=== PATIENT | female | born 1940 | race Caucasian/White ===

== ENCOUNTER 2016-10-27 10:49 | Emergency (ER) | payer MEDICARE ==
[~2016-10-27] VITALS: Ht 165.1 cm; Wt 104.0 kg
[~2016-10-27 10:49] MED LIST: DICL1GEL7 TOPICAL
[2016-10-27 10:52] VITALS: BP 217/99; PULSE 99; RESP 18; TEMP 99.1
[2016-10-27 11:11] VITALS: O2SAT 96
[2016-10-27] MEDS ORDERED: ASPIRIN 81 MG CHEW TAB PO ONE (11:15)
[2016-10-27] MEDS ORDERED: SODIUM CHLORIDE 0.9% FLUSH 10 ML FLUSH IVF PRN (11:15)
--- NOTE | 2016-10-27 11:15 | PD ---
HPI . Hypertension Chief Complaint: Hypertension Time Seen by Provider: 11:00 Travel History International Travel<30 days: No Contact w/Intl Traveler<30days: No Traveled to known affect area: No History of Present Illness HPI This patient presents with a chief complaint of hypertension. She states that she is not on any medications for hypertension. She states that she occasionally has a headache and feels hot all over. There does not seem to be anything acute today that brought her to the emergency room about this. He denies chest pain. No shortness of breath. No unusual swelling. No change in mental status. PFSH Past Medical History Cancer: No Cardiovascular Problems: No Endocrine: Yes Genitourinary: No Immune Disorder: No Musculoskeletal: Yes Neurologic: No Psychiatric: No Reproductive: No Respiratory: Yes Sleep Apnea: Yes (JUNE 2010) Thyroid Disease: Yes ?: Not Past Surgical History Abdominal Surgery: Yes (GALLBLADDER REMOVED) Cardiac Surgery: No Ear Surgery: No Endocrine Surgery: No Eye Surgery: No Genitourinary Surgery: Yes Gynecologic Surgery: Yes (HYSTERECTOMY) Oral Surgery: No Thoracic Surgery: No Social History Tobacco Use: No Substance Use: No Allergies-Medications (Allergen,Severity, Reaction): Coded Allergies: Sulfa (Sulfonamide Antibiotics) (Unverified Allergy, Severe, 10/27/16) cefuroxime (Unverified Allergy, Severe, 10/27/16) penicillin G (Unverified Allergy, Severe, 10/27/16) Reported Meds & Prescriptions Reported Meds & Active Scripts Active Review of Systems Except as stated in HPI: all other systems reviewed are Neg Eyes: No: Blurred Vision HENT: Positive: Headaches Cardiovascular: No: Chest Pain or Discomfort Respiratory: No: Shortness of Breath Neurologic: No: Paresthesia Physical Exam Narrative GENERAL: Awake and alert and in no acute distress. SKIN: warm/dry. HEAD: Normocephalic. EYES: Pupils equal and round. No scleral icterus. No injection or drainage. ENT: No nasal bleeding or discharge. Mucous membranes pink and moist. NECK: Trachea midline. Full range of motion without pain.. CARDIOVASCULAR: Regular rate and rhythm. Heart sounds are normal. RESPIRATORY: No accessory muscle use. Clear to auscultation. Breath sounds equal bilaterally. GASTROINTESTINAL: Abdomen soft. Nontender. Bowel sounds present. Nondistended. MUSCULOSKELETAL: No obvious deformities. NEUROLOGICAL: Awake and alert. No obvious cranial nerve deficits. Motor grossly within normal limits. Normal speech. PSYCHIATRIC: Appropriate mood and affect; insight and judgment normal. Data Data Last Documented VS Vital Signs Date Time Temp Pulse Resp B/P (MAP) Pulse Ox O2 Delivery O2 Flow Rate FiO2 10/27/16 12:25 84 16 222/103 (142) 98 10/27/16 10:52 99.1 Orders Orders Electrocardiogram (10/27/16 11:08) Basic Metabolic Panel (Bmp) (10/27/16 11:08) Complete Blood Count With Diff (10/27/16 11:08) Troponin I (10/27/16 11:08) Chest, Single Ap (10/27/16 11:08) Ecg Monitoring (10/27/16 11:08) Iv Access Insert/Monitor (10/27/16 11:08) Oximetry (10/27/16 11:08) Aspirin Chew (Aspirin Chew) (10/27/16 11:15) Sodium Chloride 0.9% Flush (Ns Flush) (10/27/16 11:15) Labs Laboratory Tests Test 10/27/16 11:28 White Blood Count 9.4 TH/MM3 Red Blood Count 4.91 MIL/MM3 Hemoglobin 14.5 GM/DL Hematocrit 43.7 % Mean Corpuscular Volume 88.9 FL Mean Corpuscular Hemoglobin 29.6 PG Mean Corpuscular Hemoglobin Concent 33.3 % Red Cell Distribution Width 12.2 % Platelet Count 275 TH/MM3 Mean Platelet Volume 9.2 FL Neutrophils (%) (Auto) 63.4 % Lymphocytes (%) (Auto) 26.7 % Monocytes (%) (Auto) 7.1 % Eosinophils (%) (Auto) 1.8 % Basophils (%) (Auto) 1.0 % Neutrophils # (Auto) 5.9 TH/MM3 Lymphocytes # (Auto) 2.5 TH/MM3 Monocytes # (Auto) 0.7 TH/MM3 Eosinophils # (Auto) 0.2 TH/MM3 Basophils # (Auto) 0.1 TH/MM3 CBC Comment DIFF FINAL Differential Comment Blood Urea Nitrogen 15 MG/DL Creatinine 0.84 MG/DL Random Glucose 100 MG/DL Calcium Level 8.8 MG/DL Sodium Level 141 MEQ/L Potassium Level 3.9 MEQ/L Chloride Level 105 MEQ/L Carbon Dioxide Level 23.6 MEQ/L Anion Gap 12 MEQ/L Estimat Glomerular Filtration Rate 66 ML/MIN Troponin I LESS THAN 0.02 NG/ML MDM Medical Decision Making Medical Screen Exam Complete: Yes Emergency Medical Condition: Yes Medical Record Reviewed: Yes (this patient was seen in a clinic month ago and had a normal blood pressure.) Interpretation(s) Normal sinus rhythm. Right bundle branch block. Differential Diagnosis My differential diagnosis of high blood pressure includes but is not limited to "white coat syndrome," anxiety, essential hypertension, hypertensive emergency. Narrative Course This patient presents complaining with hypertension. Clinically, the patient does not have hypertensive emergency. She has no altered mental status, no chest pain, no shortness of breath, no sudden peripheral edema. CBC & BMP Diagram 10/27/16 11:28 Calcium Level 8.8 trop < 0.02 CXR: 1. Mild cardiomegaly. 2. No acute focal pulmonary infiltrate or pulmonary vascular congestion. The history, exam, diagnostic testing, and current condition do not suggest any significant pathology to warrant further testing, continued ED treatment, admission, or surgical evaluation at this point. The patient's condition is stable and appropriate for discharge. Diagnosis Primary Impression: Elevated blood pressure reading Patient Instructions: General Instructions, Hypertension (DC) Additional Instructions: We defer treatment for hypertension to your primary care provider. Please see your provider next week for recheck of your blood pressure. Disposition: 01 DISCHARGE HOME Condition: Stable Kati Perdomo MD Oct 27, 2016 11:15
[2016-10-27 11:43] LABS: AUTOMATED NEUTROPHIL # 5.9 TH/MM3 (1.8-7.7); BASOPHIL # 0.1 TH/MM3 (0-0.2); EOSINOPHIL # 0.2 TH/MM3 (0-0.4); EOSINOPHIL % 1.8 % (0.0-4.0); HEMATOCRIT 43.7 % (35.0-46.0); HEMO FLAGS DIFF FINAL; LYMPH % 26.7 % (9.0-44.0); LYMPHOCYTE # 2.5 TH/MM3 (1.0-4.8); MEAN CELL VOLUME 88.9 FL (80.0-100.0); MEAN CORPUSCULAR HEMOGLOBIN 29.6 PG (27.0-34.0); MEAN CORPUSCULAR HGB CONC 33.3 % (32.0-36.0); MONO % 7.1 % (0.0-8.0); NEUT % 63.4 % (16.0-70.0); PLATELET COUNT 275 TH/MM3 (150-450); RED BLOOD COUNT 4.91 MIL/MM3 (4.00-5.30); RED CELL DISTRIBUTION WIDTH 12.2 % (11.6-17.2); WHITE BLOOD COUNT 9.4 TH/MM3 (4.0-11.0)
[2016-10-27 11:44] LABS: CHLORIDE 105 MEQ/L (98-107); POTASSIUM 3.9 MEQ/L (3.5-5.1); SODIUM (NA) 141 MEQ/L (136-145)
[2016-10-27 11:47] LABS: ANION GAP 12 MEQ/L (5-15); BICARBONATE 23.6 MEQ/L (21.0-32.0); BLOOD UREA NITROGEN 15 MG/DL (7-18)
[2016-10-27 11:50] LABS: GLOMERULAR FILTRATION RATE 66 ML/MIN (>89)
[2016-10-27 12:25] VITALS: BP 222/103; PULSE 84; RESP 16; O2SAT 98
--- NOTE | 2016-10-27 12:27 | RADRPT ---
EXAM DATE/TIME: 10/27/2016 11:33 [facility] COMPARISON: CHEST SINGLE AP, January 30, 2011, 15:45. INDICATIONS : Short of breath, high blood pressure. MEDICAL HISTORY : Hypertension. SURGICAL HISTORY : None. ENCOUNTER: Initial ACUITY: 2 days PAIN SCORE: 0/10 LOCATION: Bilateral chest FINDINGS: The heart is mildly prominent. Pulmonary vascular pattern is normal. The lungs are clear. CONCLUSION: 1. Mild cardiomegaly. 2. No acute focal pulmonary infiltrate or pulmonary vascular congestion. Benton Schilling MD on October 27, 2016 at 12:19 Board Certified Radiologist. This report was verified electronically.
[2016-10-27] MEDS ORDERED: LOSA25TA PO (15:13)
--- NOTE | 2016-10-28 11:58 | EKG ---
Date Performed: 10/27/2016 Time Performed: 11:16:25 PTAGE: 76 years EKG: Sinus rhythm BORDERLINE LEFT AXIS DEVIATION RIGHT BUNDLE BRANCH BLOCK MINIMAL VOLTAGE CRITERIA FOR LVH, CONSIDER NORMAL VARIANT ABNORMAL ECG PREVIOUS TRACING : 01/30/2011 16.09 Compared to previous tracing, anterior T wave inversion is now less pronounced. DOCTOR: Pérez Falcon Interpretating Date/Time 10/28/2016 11:57:02
== END 2016-10-27 13:19 | disposition home or self-care (01) ==
LOC: PHED 10:49
DX: R03.0 Elevated blood-pressure reading, without diagnosis of hypertension (principal); G47.30 Sleep apnea, unspecified; E07.9 Disorder of thyroid, unspecified; I51.7 Cardiomegaly; I45.10 Unspecified right bundle-branch block
CPT/HCPCS: 71010; 80048; 84484; 85025; 93005; 99285